=== PATIENT | female | born 1950 | race Caucasian/White ===

== ENCOUNTER 2023-02-05 12:47 | Inpatient (IN) | payer OTHER ==
[2023-02-05 13:02] VITALS: BMI 22.8
[2023-02-05 15:14] LABS: BASO % 0.4 % (0-2.0); EOS % 0.5 % (0-4.5); HEMATOCRIT 45.6 % (32.4-45.2); HEMOGLOBIN 15.9 GM/dL (10.7-15.3); LYMPH % 22.1 % (8-40); MCH 31.7 pg (25.7-33.7); MEAN CELL VOLUME 90.7 fl (80-96); MEAN PLT VOLUME 8.7 fl (7.5-11.1); MONO % 4.4 % (3.8-10.2); NEUT % 72.6 % (42.8-82.8); PLATELET COUNT 178 10^3/uL (134-434); RBC 5.02 M/mm3 (3.60-5.2); RDW 13.3 % (11.6-15.6); WHITE BLOOD COUNT 9.4 K/mm3 (4.0-10.0)
[2023-02-05] MEDS ORDERED: ONDANSETRON 4 MG/2 ML VIAL IVPUSH ONE (15:22)
[2023-02-05] MEDS ORDERED: SODIUM CHLORIDE 0.9% 500 ML INFUS.BAG IV ONE (15:22)
[2023-02-05] MEDS ORDERED: MECLIZINE HCL 25 MG TABLET (FP) PO ONE (15:22)
[2023-02-05 15:42] LABS: POTASSIUM 4.8 mmol/L (3.5-5.1)
[2023-02-05 15:45] LABS: CALCIUM 9.3 mg/dL (8.5-10.1)
[2023-02-05 15:46] LABS: ALBUMIN 3.8 g/dl (3.4-5.0); BLOOD UREA NITROGEN 16.3 mg/dL (7-18); MAGNESIUM 2.2 mg/dL (1.8-2.4)
[2023-02-05 15:48] LABS: CREATININE 0.6 mg/dL (0.55-1.3)
[2023-02-05 15:49] LABS: TOT PROT 8.1 g/dl (6.4-8.2)
[2023-02-05 15:50] LABS: BILIRUBIN,TOTAL 0.7 mg/dL (0.2-1)
[2023-02-05] MEDS ORDERED: MECLIZINE HCL 25 MG TABLET (FP) ONE (16:01)
[2023-02-05] MEDS ORDERED: ONDANSETRON 4 MG/2 ML VIAL ONE (16:01)
[2023-02-05 17:34] LABS: EPI CELLS 9 /uL (0-25.1); HYALINE CASTS 0 /uL (0-3.1); URINE APPEARANCE CLEAR; URINE BACTERIA >9,000 /uL (0-1359); URINE BILIRUBIN NEGATIVE (NEGATIVE); URINE COLOR YELLOW; URINE GLUCOSE (UA) NEGATIVE (NEGATIVE); URINE KETONE NEGATIVE (NEGATIVE); URINE LEUK ESTERASE TRACE (NEGATIVE); URINE NITRITE NEGATIVE (NEGATIVE); URINE PROTEIN NEGATIVE (NEGATIVE); URINE RBC 11 /uL (0-23.9); URINE UROBILINOGEN 0.2 mg/dL (0.2-1.0); URINE WBC 33 /uL (0-25.8)
[2023-02-05] MEDS ORDERED: ASPIRIN 81 MG CHEWABLE TABLETS PO ONE (17:35)
[2023-02-05] MEDS ORDERED: CEFTRIAXONE 1,000 MG in DEXTROSE 5%-WATER - 50 ML IVPB ONE (17:36)
[2023-02-05] MEDS ORDERED: ASPIRIN 81 MG CHEWABLE TABLETS ONE (17:47)
[2023-02-05] MEDS ORDERED: CEFTRIAXONE 1 GM/50 ML BAG ONE (17:47)
[2023-02-05] MEDS ORDERED: MECLIZINE HCL 25 MG TABLET (FP) PO PRN (22:36)
[2023-02-05] MEDS ORDERED: ENOXAPARIN NA (PORCINE) 60 MG/0.6 ML DISP.SYRIN SQ SCH (22:45)
[2023-02-05 23:52] LABS: POTASSIUM 3.6 mmol/L (3.5-5.1)
[2023-02-05 23:55] LABS: CALCIUM 8.5 mg/dL (8.5-10.1)
[2023-02-05 23:56] LABS: ALBUMIN 3.2 g/dl (3.4-5.0); BLOOD UREA NITROGEN 14.8 mg/dL (7-18)
[2023-02-05 23:58] LABS: BILIRUBIN,DIRECT 0.1 mg/dL (0.0-0.2)
[2023-02-05 23:59] LABS: CREATININE 0.7 mg/dL (0.55-1.3)
[2023-02-06 00:01] LABS: BILIRUBIN,TOTAL 0.7 mg/dL (0.2-1); TOT PROT 7.1 g/dl (6.4-8.2)
[2023-02-06] MEDS ORDERED: CEFTRIAXONE 1 GM/50 ML BAG ONE (09:35)
[2023-02-06] MEDS: CEFTRIAXONE 1 GM in DEXTROSE 5%-WATER - 50 ML IVPB SCH (09:46)
[2023-02-06] MEDS: ASPIRIN COATED 81 MG TABLET.EC PO SCH (09:46)
[2023-02-06] MEDS ORDERED: ENOXAPARIN NA (PORCINE) 40 MG/0.4 ML DISP.SYRIN SQ SCH (10:00)
[2023-02-06 18:12] VITALS: RESP 18
[2023-02-07 07:55] LABS: BASO % 0.6 % (0-2.0); EOS % 3.2 % (0-4.5); HEMATOCRIT 42.1 % (32.4-45.2); HEMOGLOBIN 14.5 GM/dL (10.7-15.3); LYMPH % 49.8 % (8-40); MCH 31.6 pg (25.7-33.7); MCHC 34.4 g/dl (32.0-36.0); MEAN CELL VOLUME 91.6 fl (80-96); MEAN PLT VOLUME 9.1 fl (7.5-11.1); MONO % 11.5 % (3.8-10.2); NEUT % 34.9 % (42.8-82.8); PLATELET COUNT 172 10^3/uL (134-434); RDW 13.4 % (11.6-15.6)
[2023-02-07 09:12] LABS: POTASSIUM 4.1 mmol/L (3.5-5.1)
[2023-02-07 09:25] LABS: CALCIUM 8.4 mg/dL (8.5-10.1)
[2023-02-07 09:26] LABS: ALBUMIN 3.3 g/dl (3.4-5.0); BLOOD UREA NITROGEN 20.6 mg/dL (7-18)
[2023-02-07 09:29] LABS: CREATININE 0.7 mg/dL (0.55-1.3)
[2023-02-07 09:31] LABS: BILIRUBIN,TOTAL 0.8 mg/dL (0.2-1); TOT PROT 7.3 g/dl (6.4-8.2)
[2023-02-07] MEDS: ASPIRIN COATED 81 MG TABLET.EC PO SCH (09:39)
[2023-02-07] MEDS: CEFTRIAXONE 1 GM in DEXTROSE 5%-WATER - 50 ML IVPB SCH (09:40)
[2023-02-07] MEDS ORDERED: ENOXAPARIN NA (PORCINE) 40 MG/0.4 ML DISP.SYRIN SQ SCH (10:00)
[2023-02-07 11:18] LABS: N-TERMINAL BNP 226.8 pg/ml (5-125)
[2023-02-07] MEDS ORDERED: LACTATED RINGERS SOLUTION 1,000 ML/1,000 ML INFUS.BAG IV SCH (11:30)
[2023-02-07 20:42] VITALS: BP 148/53; PULSE 80; TEMP 98
== END 2023-02-07 21:52 | DRG 190 ==
LOC: JER 12:47 → EDBD 12:47 → JERBED 16:50 → J4W 02-06 14:12 → OBSVTOIN 02-07 13:23
PROVIDERS: ADMIT Internal Medicine; ATTEND Internal Medicine
DX: I21.4 Non-ST elevation (NSTEMI) myocardial infarction (principal); I50.20 Unspecified systolic (congestive) heart failure; N39.0 Urinary tract infection, site not specified; R42 Dizziness and giddiness; R11.2 Nausea with vomiting, unspecified; I10 Essential (primary) hypertension; E78.5 Hyperlipidemia, unspecified; B96.20 Unspecified Escherichia coli [E. coli] as the cause of diseases classified elsewhere; I44.7 Left bundle-branch block, unspecified
CPT/HCPCS: 0241U-QW; 36415; 70450-TC; 70551-TC; 71045-TC-FY; 80048; 80053; 80076; 81003; 83735; 83880; 84100; 84484; 85025; 86704; 86803; 87086; 87186; 87340; 87517; 87635; 93005; 93010; 93306-TC; 93880-TC; 97116-GP; 97162-GP; 99285-25; G0378